=== PATIENT | female | born 1950 | race Caucasian/White ===

== ENCOUNTER 2021-06-07 14:36 | Outpatient (CLI) | payer MEDICARE | END 2021-06-07 14:37 | disposition home or self-care (01) | LOC: CSHMAMMO 14:36 | PROVIDERS: ATTEND Family Medicine | DX: Z12.31 Encounter for screening mammogram for malignant neoplasm of breast (principal) | CPT/HCPCS: 77063; 77067 ==

== ENCOUNTER 2022-12-05 08:48 | Outpatient (CLI) | payer OTHER ==
[2022-12-05] MEDS ORDERED: Iopamidol 300 61% 100 ML VIAL FS ONE (11:51)
== END 2022-12-05 08:49 | disposition home or self-care (01) ==
LOC: CSHCT 08:48
PROVIDERS: ATTEND Nurse Practitioner Family
DX: R10.33 Periumbilical pain (principal); R10.9 Unspecified abdominal pain; R10.11 Right upper quadrant pain; N28.1 Cyst of kidney, acquired
CPT/HCPCS: 74178; Q9967

== ENCOUNTER 2024-04-14 10:57 | Outpatient (CLI) | payer MEDICARE, OTHER | END 2024-04-14 10:58 | disposition home or self-care (01) | LOC: CSHMAMMO 10:57 | PROVIDERS: ATTEND Nurse Practitioner Family | DX: Z12.31 Encounter for screening mammogram for malignant neoplasm of breast (principal) | CPT/HCPCS: 77063; 77067 ==

== ENCOUNTER 2024-10-07 10:50 | Outpatient (CLI) | payer MEDICARE ==
[2024-10-07] MEDS ORDERED: Iopamidol 300 61% 100 ML VIAL FS ONE (12:23)
== END 2024-10-07 10:51 | disposition home or self-care (01) ==
LOC: CSHCT 10:50
PROVIDERS: ATTEND Nurse Practitioner Family
DX: N89.8 Other specified noninflammatory disorders of vagina (principal); Z71.1 Person with feared health complaint in whom no diagnosis is made; R31.0 Gross hematuria; N32.81 Overactive bladder; N28.1 Cyst of kidney, acquired
CPT/HCPCS: 74178; 82565; Q9967

== ENCOUNTER 2025-07-25 08:42 | Outpatient (CLI) | payer MEDICARE, OTHER | END 2025-07-25 08:43 | disposition home or self-care (01) | LOC: CSHULT 08:42 | PROVIDERS: ATTEND Nurse Practitioner Family | DX: R10.9 Unspecified abdominal pain (principal); R10.A1 Flank pain, right side; D73.89 Other diseases of spleen | CPT/HCPCS: 76700; 76770 ==